=== PATIENT | female | born 1965 | race Caucasian/White ===

== ENCOUNTER 2018-08-11 17:22 | Inpatient (IN) | payer OTHER ==
[2018-08-11 18:15] LABS: ADD MAN DIFF? NO
[2018-08-11 18:22] LABS: WHITE BLOOD COUNT 5.1 10^3/ul (4.8-10.8)
[2018-08-11 18:22] LABS: BASOPHILS % 0.4 % (0.0-2.0); EOSINOPHILS # 0.2 10^3/ul (0.0-0.5); EOSINOPHILS % 3.3 % (0.0-7.0); HEMATOCRIT 29.2 % (37.0-47.0); HEMOGLOBIN 9.4 g/dl (12.0-16.0); LYMPHOCYTES # 0.6 10^3/ul (0.8-2.9); LYMPHOCYTES % 12.1 % (15.0-51.0); MEAN CORPUSCULAR HEMOGLOBIN 29.7 pg (29.0-33.0); MEAN CORPUSCULAR HGB CONC 32.2 g/dl (32.0-37.0); MEAN CORPUSCULAR VOLUME 92.1 fl (82.0-101.0); MEAN PLATELET VOLUME 9.4 fl (7.4-10.4); MONOCYTE # 0.4 10^3/ul (0.3-0.9); MONOCYTES % 7.4 % (0.0-11.0); NEUTROPHIL # 3.9 10^3/ul (1.6-7.5); NEUTROPHILS % 76.4 % (39.0-77.0); PLATELET COUNT 181 10^3/UL (140-415); RED BLOOD COUNT 3.17 10^6/ul (4.20-5.40); RED CELL DISTRIBUTION WIDTH 15.1 % (11.5-14.5)
[2018-08-11 18:40] LABS: INR 2.02; PROTIME 23.3 Sec (11.9-14.9); PT RATIO 1.8
[2018-08-11 18:41] LABS: PARTIAL THROMBOPLASTIN TIME 38.8 Sec (25.0-35.0)
[2018-08-11 18:42] LABS: ALANINE AMINOTRANSFERASE 33 IU/L (13-69); ALBUMIN 3.4 g/dl (3.3-4.9); ALBUMIN/GLOBULIN RATIO 0.97; ALKALINE PHOSPHATASE 63 IU/L (42-121); ANION GAP 11 (8-16); ASPARTATE AMINO TRANSFERASE 21 IU/L (15-46); BILIRUBIN,INDIRECT 0.4 mg/dl (0-1.1); BILIRUBIN,TOTAL 0.4 mg/dl (0.2-1.3); BLOOD UREA NITROGEN 12 mg/dl (7-20); CARBON DIOXIDE 26 mmol/L (21-31); CHLORIDE 101 mmol/L (97-110); GLUCOSE 101 mg/dl (70-220); LIPASE 37 U/L (23-300); POTASSIUM 3.9 mmol/L (3.5-5.1); SODIUM 134 mmol/L (135-144); TOTAL PROTEIN 6.9 g/dl (6.1-8.1)
[2018-08-11 18:54] LABS: TROPONIN-I < 0.012 ng/ml (0.000-0.120)
[2018-08-11] MEDS: ONDANSETRON 4 MG INJ IV (19:01)
[2018-08-11] MEDS: ENOXAPARIN 80 MG/0.8 ML SYG SC (19:01)
[2018-08-11] MEDS: SOD CHLORIDE 0.9% 1,000 ML IV (19:02)
[2018-08-11] MEDS: morphine 2 MG INJ IV (19:02)
[2018-08-11] MEDS ORDERED: NACL 0.9% 3 ML SYG IV (19:30)
[2018-08-11] MEDS: IODIXANOL LOCM 100 ML BTL (19:55)
[2018-08-11] MEDS: SOD CHLORIDE 0.9% 100 ML (19:55)
[2018-08-11 20:45] LABS: ADD UMIC YES; UR ASCORBIC ACID NEGATIVE (NEGATIVE); UR BILIRUBIN (Dip) NEGATIVE (NEGATIVE); UR BLOOD (Dip) 1+ mg/dL (NEGATIVE); UR CLARITY CLEAR (CLEAR); UR COLOR COLORLESS (YELLOW); UR GLUCOSE (Dip) NEGATIVE (NEGATIVE); UR KETONES (Dip) NEGATIVE (NEGATIVE); UR LEUKOCYTE ESTERASE (Dip) NEGATIVE Leu/ul (NEGATIVE); UR NITRITE (Dip) NEGATIVE (NEGATIVE); UR RBC 3 /HPF (0-5); UR SPECIFIC GRAVITY (Dip) 1.042 (1.003-1.030); UR TOTAL PROTEIN (Dip) NEGATIVE (NEGATIVE); UR UROBILINOGEN (Dip) NEGATIVE (NEGATIVE); UR WBC 2 /HPF (0-5)
[2018-08-11] MEDS: METOPROLOL 25 MG TAB PO (20:54)
[2018-08-11] MEDS: ATORVASTATIN 40 MG TAB PO (20:54)
[2018-08-11] MEDS: GABAPENTIN 100 MG CAP PO (20:54)
[2018-08-12 08:20] LABS: ADD MAN DIFF? NO
[2018-08-12 08:31] LABS: ABNORMAL IP MESSAGE 1; BASOPHILS % 0.2 % (0.0-2.0); EOSINOPHILS # 0.1 10^3/ul (0.0-0.5); EOSINOPHILS % 2.8 % (0.0-7.0); HEMATOCRIT 29.4 % (37.0-47.0); HEMOGLOBIN 9.4 g/dl (12.0-16.0); LYMPHOCYTES # 0.5 10^3/ul (0.8-2.9); LYMPHOCYTES % 9.5 % (15.0-51.0); MEAN CORPUSCULAR HEMOGLOBIN 29.6 pg (29.0-33.0); MEAN CORPUSCULAR VOLUME 92.5 fl (82.0-101.0); MEAN PLATELET VOLUME 9.9 fl (7.4-10.4); MONOCYTE # 0.3 10^3/ul (0.3-0.9); MONOCYTES % 5.9 % (0.0-11.0); NEUTROPHIL # 4.1 10^3/ul (1.6-7.5); PLATELET COUNT 184 10^3/UL (140-415); RED BLOOD COUNT 3.18 10^6/ul (4.20-5.40); RED CELL DISTRIBUTION WIDTH 15.3 % (11.5-14.5)
[2018-08-12 08:31] LABS: WHITE BLOOD COUNT 5.1 10^3/ul (4.8-10.8)
[2018-08-12 08:32] LABS: POSITIVE DIFF @See below
[2018-08-12 08:50] LABS: HEMOGLOBIN A1C 5.6 % (0-5.9)
[2018-08-12 08:51] LABS: ALANINE AMINOTRANSFERASE 32 IU/L (13-69); ALBUMIN 3.4 g/dl (3.3-4.9); ALBUMIN/GLOBULIN RATIO 0.91; ALKALINE PHOSPHATASE 67 IU/L (42-121); ANION GAP 15 (8-16); ASPARTATE AMINO TRANSFERASE 19 IU/L (15-46); BILIRUBIN,INDIRECT 0.7 mg/dl (0-1.1); BILIRUBIN,TOTAL 0.7 mg/dl (0.2-1.3); BLOOD UREA NITROGEN 8 mg/dl (7-20); CALCIUM 9.4 mg/dl (8.4-10.2); CARBON DIOXIDE 25 mmol/L (21-31); CHLORIDE 99 mmol/L (97-110); CREATININE 0.46 mg/dl (0.44-1.00); GLUCOSE 85 mg/dl (70-220); POTASSIUM 3.5 mmol/L (3.5-5.1); SODIUM 135 mmol/L (135-144); TOTAL PROTEIN 7.1 g/dl (6.1-8.1)
[2018-08-12] MEDS: SERTRALINE 50 MG TAB PO (09:02)
[2018-08-12] MEDS: MAGNESIUM OXIDE 400 MG TAB PO (09:03)
[2018-08-12] MEDS: GABAPENTIN 100 MG CAP PO ×2 (09:04→21:05)
[2018-08-12] MEDS: METOPROLOL 25 MG TAB PO ×2 (09:04→21:04)
[2018-08-12] MEDS: RIVAROXABAN 15 MG TABLET PO ×2 (09:05→18:26)
[2018-08-12] MEDS: NYSTATIN/TRIAMCINOLONE 15 GM CR TOP (09:43)
[2018-08-12] MEDS: ATORVASTATIN 40 MG TAB PO (21:05)
[2018-08-12] MEDS ORDERED: DIPHENHYDRAMINE 50 MG CAP PO (22:00)
[2018-08-13] MEDS: HYDROCODONE/APAP (5/325) TAB PO (09:18)
[2018-08-13] MEDS: NYSTATIN/TRIAMCINOLONE 15 GM CR TOP (09:19)
[2018-08-13] MEDS: SERTRALINE 50 MG TAB PO (09:19)
[2018-08-13] MEDS: MAGNESIUM OXIDE 400 MG TAB PO (09:20)
[2018-08-13] MEDS: RIVAROXABAN 15 MG TABLET PO ×2 (09:21→18:20)
[2018-08-13] MEDS: METOPROLOL 25 MG TAB PO (09:21)
[2018-08-13] MEDS: GABAPENTIN 100 MG CAP PO (09:22)
[2018-08-13] MEDS: ONDANSETRON 4 MG INJ IV (11:12)
== END 2018-08-13 18:35 | DRG 301 ==
LOC: E/R 17:22 → 2NE 08-13 09:00
DX: I82.413 Acute embolism and thrombosis of femoral vein, bilateral (principal); I82.433 Acute embolism and thrombosis of popliteal vein, bilateral; Z85.43 Personal history of malignant neoplasm of ovary; Z87.440 Personal history of urinary (tract) infections; I10 Essential (primary) hypertension; I25.10 Atherosclerotic heart disease of native coronary artery without angina pectoris; F03.90 Unspecified dementia, unspecified severity, without behavioral disturbance, psychotic disturbance, mood disturbance, and anxiety; Z86.73 Personal history of transient ischemic attack (TIA), and cerebral infarction without residual deficits
CPT/HCPCS: 36415; 71045; 74178; 80053; 81001; 83036; 83690; 84484; 85025; 85610; 85730; 87081; 93005; 93970; 96372; 96374; 96375; 99285-25